=== PATIENT | female | born 1985 | race Caucasian/White ===

== ENCOUNTER 2017-10-12 12:21 | Emergency (ER) | payer OTHER ==
--- NOTE | 2017-10-12 12:34 | UC ---
Lower Extremity/Ankle HPI - HPI Summary HPI Summary: 32 y/o female presents to the urgent care c/o RT ankle pain s/p twisting her ankle while going down the front stairs covered w/ snow. Pt reports swelling pain is 7/10 w/ movement and 2/10 w/ rest. She applied ice and elevated her Rt ankle, but this morning she was limping. She took Tyenol PO at 0800Am to alleviate symptoms. LMP:09/13/2017 w/ Hx of B/L tubal ligation in 2017. However she is concerned and requests a test. Pt denies numbness and tingling sensation over the Rt foot, SOB, chest pain, abdominal pain, N/V/D. - History of Current Complaint Stated Complaint: RT ANKLE COMPLAINT Time Seen by Provider: 10/12/17 12:31 Hx Obtained From: Patient Hx Last Menstrual Period: 09/13/2017 ?: No Onset/Duration: Sudden Onset, Lasting Days - 1 day, Still Present, Worse Since - this morning Severity Initially: Moderate Severity Currently: Moderate Pain Intensity: 7 - w/ walking Pain Scale Used: 0-10 Numeric Aggravating Factor(s): Ambulation Alleviating Factor(s): Rest, Elevation, Ice, OTC Meds Able to Bear Weight: Yes - Risk Factors Gout Risk Factors: Negative DVT Risk Factors: Negative Septic Arthritis Risk Factor: Negative - Allergies/Home Medications Allergies/Adverse Reactions: Allergies Allergy/AdvReac Type Severity Reaction Status Date / Time amoxicillin Allergy Hives Verified 10/12/17 12:39 Home Medications: Home Medications Acetaminophen [Tylophen] 1,000 mg PO PRN 10/12/17 [History] PMH/Surg Hx/FS Hx/Imm Hx Previously Healthy: Yes Other Neurological History: back pain Psychological History: Anxiety, Depression - Surgical History Surgical History: Yes Surgery Procedure, Year, and Place: 2-, Scoliosis surgery age 15 with maira placement and removal of 2 discs. - Family History Known Family History: Positive: Diabetes - Social History Occupation: Employed Full-time Lives: With Family Alcohol Use: Rare Substance Use Type: None Smoking Status (MU): Never Smoked Tobacco Have You Smoked in the Last Year: No Review of Systems Constitutional: Negative Skin: Negative Eyes: Negative ENT: Negative Respiratory: Negative Cardiovascular: Negative Gastrointestinal: Negative Genitourinary: Negative Motor: Negative Neurovascular: Negative Musculoskeletal: Decreased ROM - Rt ankle, Other: - RT ankle pain s/p injury Neurological: Negative Psychological: Negative Is Patient Immunocompromised?: No All Other Systems Reviewed And Are Negative: Yes Physical Exam - Summary Physical Exam Summary: Vital Signs Reviewed: Yes General: well developed, well nourished female, sitting in the examining table w /o any apparent distress Eyes: Positive: Conjunctiva Clear - PERRLA, EOMI, ENT: Positive: Normal ENT inspection, Hearing grossly normal, Pharynx normal, TMs normal Neck: Positive: Supple, Nontender, No Lymphadenopathy Respiratory: Positive: Chest non-tender, Lungs clear, Normal breath sounds, No respiratory distress Cardiovascular: Positive: RRR, No Murmur, Pulses Normal, Brisk Capillary Refill Abdomen Description: Positive: Nontender, No Organomegaly, Soft. Negative: CVA Tenderness (R), CVA Tenderness (L) Bowel Sounds: Positive: Present Musculoskeletal: - RT Ankle: Pt is able to bear weight and ambulate w/ limping. The R ankle is without obvious asymmetry or deformity when compared to the L ankle. Decreased ROM due to pain. Moderate swelling at the lateral malleolus, with tenderness to palpation. No ecchymosis or bruising observed. Also tenderness to palpation over the medial malleolus , mild swelling observed. Talar tilt test is negative for ligament laxity to valgus or varus stress. Negative anterior drawer. Peroneal nerve is intact with strong eversion and plantar flexion. Positive sensation over the Rt foot and Rt ankle, positive pulses, capillary refill intact Neurological Exam: Normal Psychological Exam: Normal Skin: warm and dry Triage Information Reviewed: Yes Lower Extremity Course/Dx - Course Course Of Treatment: 32 y/o female presents to the urgent care c/o RT ankle pain s/p twisting her ankle while going down the front stairs covered w/ snow. Pt reports swelling pain is 7/10 w/ movement and 2/10 w/ rest. She applied ice and elevated her Rt ankle, but this morning she was limping. She took Tyenol PO at 0800Am to alleviate symptoms. LMP:09/13/2017 w/ Hx of B/L tubal ligation in 2017. However she is concerned and requests a test. Pt denies numbness and tingling sensation over the Rt foot, SOB, chest pain, abdominal pain, N/V/D.Hx obtained. test: negative. Rt ankle X-ray ordered, Impression: circumferantial Soft tissue swelling observed, small bone fragment off the distal fibula, avulsion injury. Pt's symptoms presented to DR Hays, he recommended immobilize ankle w/ a CAM love and non- weight bearing w/ crutches, and f/u w/ Orthopedic on [place]. Pt's Ankle immobilized with CAM Love and given Crutches to avoid weight bearing, Rx Naproxen PO to decrease swelling and pain. Pt advised RICE, take Med for pain and to f/u with orthopedic Dr Escamilla in 2 days for further evaluation and treatment. Pt understood and agreed and left the clinic ambulating w/ the help of crutches. - Differential Dx/Diagnosis Differential Diagnosis/HQI/PQRI: Arthritis, Contusion, Fracture (Closed), Sprain , Strain, Tendonitis Provider Diagnoses: 1- Rt ankle pain s/p injury. 2- RT ankle distal fibula w/ small bone avulsed injury Discharge - Discharge Plan Condition: Stable Disposition: HOME Prescriptions: Naproxen Sodium [Naproxen Sodium 500 MG TAB] 500 mg PO Q8HR #30 tab Patient Education Materials: Ankle Fracture (ED), Crutch Instructions (ED), Avulsion Fracture (ED) Referrals: Silvia Bahena MD [Primary Care Provider] - 3 Days Bárbara Escamilla MD [Medical Doctor] - 2 Days Additional Instructions: 1-Please take medications as directed to alleviate pain and swelling. 2-Please apply ice, keep your ankle immobilized with the Cam love. Avoid weight bearing using the crutches 3- Please f/u with Orthopedic [facility] in 2-3 days for further evaluation and treatment.
[2017-10-12 12:49] VITALS: BP 120/76
--- NOTE | 2017-10-12 13:27 | RAD ---
HISTORY: Status post right ankle injury COMPARISONS: None VIEWS: 3, Frontal, lateral, and oblique views of the right ankle FINDINGS: BONE DENSITY: Normal. BONES: There is a small bone from along the distal fibula. JOINTS: There is no arthropathy. ALIGNMENT: There is no dislocation. SOFT TISSUES: There is circumferential soft tissue swelling. OTHER FINDINGS: None. IMPRESSION: SMALL BONE FRAGMENT OFF THE DISTAL FIBULA SUGGESTIVE OF AN AVULSION INJURY.
== END 2017-10-12 14:00 | disposition home or self-care (01) ==
LOC: UCCORT 12:21
DX: S93.04XA Dislocation of right ankle joint, initial encounter (principal); X50.0XXA Overexertion from strenuous movement or load, initial encounter; Y93.K1 Activity, walking an animal; Y92.9 Unspecified place or not applicable; Z32.02 Encounter for pregnancy test, result negative; Z88.0 Allergy status to penicillin
CPT/HCPCS: 84702; 99213; G0463